=== PATIENT | female | born 1985 ===

== ENCOUNTER 2016-10-28 15:58 | Emergency (ER) | payer MEDICAID ==
[~2016-10-28] VITALS: Ht 162.6 cm; Wt 63.0 kg
[2016-10-28 17:14] LABS: CALCIUM 9.2 mg/dL (8.5-10.1); CHLORIDE SERUM 102 mmol/L (98-107); CREATININE SERUM 0.7 mg/dL (0.6-1.0); GFR1 > 60 mL/min; GLUCOSE SERUM 100 mg/dL (74-106); POTASSIUM SERUM 3.7 mmol/L (3.5-5.1); SODIUM SERUM 138 mmol/L (136-145)
[2016-10-28 17:18] LABS: BASOPHIL % 0.2 % (0-2); PLATELET COUNT 407 x10^3mcL (130-400); RED CELL DISTRIBUTION WIDTH 13.6 % (11.5-14.5)
[2016-10-28 19:10] VITALS: BP 137/71
== END 2016-10-28 18:35 | disposition home or self-care (01) ==
LOC: ED 15:58
PROVIDERS: Emergency Medicine
DX: O21.0 Mild hyperemesis gravidarum (principal); Z3A.10 10 weeks gestation of pregnancy
CPT/HCPCS: J2405; J7030

== ENCOUNTER 2016-10-29 20:55 | Inpatient (IN) | payer MEDICAID ==
[~2016-10-29] VITALS: Ht 162.6 cm; Wt 58.7 kg
--- NOTE | 2016-10-29 21:33 | NUR ---
MSE COMPLETED BY DR CARMEN
[2016-10-29 21:51] LABS: BASOPHIL % 0.4 % (0-2); RED CELL DISTRIBUTION WIDTH 13.9 % (11.5-14.5)
[2016-10-29 21:52] LABS: PLATELET COUNT 401 x10^3mcL (130-400)
--- NOTE | 2016-10-29 21:55 | NUR ---
PT MEDICATED PER MD ORDERS; PLEASE SEE EMAR. PT AWAKE AND ALERT, DENIED ANY ALLERGIES TO MEDICATIONS PRIOR TO ADMINSTRATION
[2016-10-29 22:06] LABS: CALCIUM 8.6 mg/dL (8.5-10.1); CARBON DIOXIDE 25.3 mmol/L (21-32); CHLORIDE SERUM 102 mmol/L (98-107); CREATININE SERUM 0.7 mg/dL (0.6-1.0); GFR1 > 60 mL/min; GLUCOSE SERUM 108 mg/dL (74-106); POTASSIUM SERUM 3.2 mmol/L (3.5-5.1); SODIUM SERUM 136 mmol/L (136-145)
[2016-10-29 22:10] LABS: ALBUMIN 3.6 g/dL (3.4-5.0); ALKALINE PHOSPHATASE 48 U/L (46-116); ALT/SGPT 25 U/L (14-59); AMYLASE 85 U/L (25-115); AST/SGOT 17 U/L (15-37); BILIRUBIN TOTAL 0.6 mg/dL (0.20-1.00); LIPASE 301 IU/L (73-393); TOTAL PROTEIN, SERUM 7.2 g/dL (6.4-8.2)
--- NOTE | 2016-10-29 23:37 | NUR ---
PT REQUESTING PAIN MEDICATION NOW. DR CARMEN MADE AWARE.
--- NOTE | 2016-10-29 23:38 | NUR ---
PT MEDICATED PER MD ORDERS. PT EDUCATED AND VERBALIZED UNDERSTANDING PRIOR TO ADMIN OF ALL MEDICATIONS,
--- NOTE | 2016-10-30 00:11 | NUR ---
REPORT CALLED TO [facility] TO ASSUME CARE OF PT
[2016-10-30 01:23] VITALS: BP 120/64
--- NOTE | 2016-10-30 01:34 | NUR ---
RECEIVED PATIENT FROM ED VIA GUERNEY, PATIENT IN NO ACUTE DISTRESS, NO C/O PAIN AT THIS TIME, ALERT AND ORIENTED PATIENT STATES SHE IS 10 WEEKS , NO N/V AT THIS TIME, ORIENTED PATIEN TO ROOM AND SURROUNDINGS, BED IN LOW POSITION, BED RAILS UP X 2, CALL LIGHT WITHIN REACH, WILL ENDORSE CARE TO [facility] CARRANZA
[2016-10-30 01:50] LABS: microscopic required? YES; urine erythrocyte NEGATIVE (NEGATIVE)
[2016-10-30 02:09] LABS: FREE T4 1.42 ng/dL (0.76-1.46)
[2016-10-30 02:15] LABS: AMPHETAMINE QUAL UR NONE DETECTED (NEG <=1000)
[2016-10-30 02:17] LABS: T3 TOTAL 1.51 ng/mL
--- NOTE | 2016-10-30 05:04 | NUR ---
PT VOMITED APPROX 75 CC. ZOFRAN 4 MG IV GIVEN.
--- NOTE | 2016-10-30 05:35 | NUR ---
PT STILL VOMITING AFTER ZOFRAN WAS GIVEN. PT REQUESTING FOR ANOTHER MED. FOR VOMITING. PT DECIDED TO WALK IN THE HALLWAY FOR THE MEANTIME . DR. NETTLES INFORMED THAT PT STILL CONTINUES TO VOMIT.
[2016-10-30 05:56] VITALS: BP 110/75
--- NOTE | 2016-10-30 06:08 | NUR ---
PT MEDICATED W/ PHENERGAN 12.5 MG IV ORDERED FOR VOMITING.
[2016-10-30 06:39] LABS: BASOPHIL % 0.3 % (0-2); PLATELET COUNT 379 x10^3mcL (130-400); RED CELL DISTRIBUTION WIDTH 13.8 % (11.5-14.5)
--- NOTE | 2016-10-30 06:40 | NUR ---
PT APPEARS TO BE SLEEPING COMFORTABLY AFTER PHENERGAN WAS GIVEN. NO FURTHER VOMITING AT THIS TIME.
[2016-10-30 06:46] LABS: CALCIUM 8.2 mg/dL (8.5-10.1); CARBON DIOXIDE 22.4 mmol/L (21-32); CHLORIDE SERUM 104 mmol/L (98-107); CREATININE SERUM 0.5 mg/dL (0.6-1.0); GFR1 > 60 mL/min; GLUCOSE SERUM 91 mg/dL (74-106); MAGNESIUM 1.9 mg/dL (1.8-2.4); PHOSPHOROUS 2.6 mg/dL (2.5-4.9); POTASSIUM SERUM 3.7 mmol/L (3.5-5.1); SODIUM SERUM 135 mmol/L (136-145)
[2016-10-30 06:50] LABS: CHOLESTEROL/HDL RATIO 2.8
--- NOTE | 2016-10-30 08:00 | NUR ---
DROWSY FROM PHENERGAN THIS AM DURING NOC SHIFT. ORIENTED. FOLLOWS COMANDS. FULL LIQUID DIET AT BEDSIDE. INTERMITTENT NAUSEA. NS INFUSING 50 CC HOUR. TELE # 29 NSR. NO PAIN AT THIS TIME. BREATHING FREELY ON RA. INDEPENDENT W ADL'S. CALL LIGHT WITHIN REACH.
[2016-10-30 09:20] VITALS: BP 92/52
[2016-10-30 13:55] VITALS: BP 136/75
[2016-10-30 17:08] VITALS: BP 114/54
--- NOTE | 2016-10-30 18:12 | NUR ---
SLEEPING. CONTINUES TO HAVE NAUSEA WHEN PHENERGAN WEARS OFF. GOES TO SLEEP AFTER PHENERGAN ADMIN. ON FULL LIQUID DIET. POOR APPETITE THIS SHIFT. BRP. NS INFUSING 50 CC HOUR. CLEOCIN IV ABX. BREATHING FREELY ON RA. WAITING FOR DR. Tegan SALMERON OB CONSULT. INDEPENDENT WITH ADL'S. BRP. CALL LIGHT WITHIN REACH.
[2016-10-30 19:40] VITALS: BP 118/69
--- NOTE | 2016-10-30 19:40 | NUR ---
PT RESTING IN BED WITH EYES CLOSED. EASILY AROUSED WHEN NAME CALLED. AOX4. VERBAL WITH CLEAR SPEECH. PT STATES FEELING BETTER AFTER LAST PHENERGAN THAT WAS GIVEN. DENIES ANY NAUSEA AT THIS TIME. DENIES ANY SOB. LUNGS CLEAR BILATERALLY. DENIES ANY CHEST PAIN. ON TELE 29, SB. ABDOMEN SOFT AND FLAT. BOWEL SOUNDS HYPOACTIVE. PT C/O SLIGHT ABDOMINAL PAIN, BUT REFUSES ANY PAIN MEDICATION AT THIS TIME. SKIN WARM AND DRY. IV TO RIGHT AC PATENT AND INTACT. NO S/S OF INFECTION NOTED. NO EDEMA NOTED. PULSES PALPABLE. CALL LIGHT WITHIN REACH. WILL CONTINUE TO MONITOR.
--- NOTE | 2016-10-30 23:40 | NUR ---
PT AWAKE AND C/O FEELING NAUSEOUS. PT HAD MODERATE AMOUNT EMESIS. PRN PHENERGAN 12.5 MG IVP GIVEN. ALSO, GIVEN ICE CHIPS. PT C/O ABDOMINAL PAIN, BUT REFUSED PAIN MEDICATION. CALL LIGHT WITHIN REACH. WILL CONTINUE TO MONITOR.
--- NOTE | 2016-10-31 00:30 | NUR ---
PT RESTING IN BED WITH EYES CLOSED. BREATHING EQUAL AND UNLABORED. NO S/S OF DISTRESS OR DISCOMFORT NOTED. IV PATENT AND INFUSING WELL. RESTING COMFORTABLY WITH RELAXED FACIAL FEATURES. CALL LIGHT WITHIN REACH. WILL CONTINUE TO MONITOR.
--- NOTE | 2016-10-31 06:00 | NUR ---
PT RESTING IN BED WITH EYES CLOSED. IV PATENT AND INTACT. IV INFUSING WELL TO RIGHT AC. RESTING COMFORTABLY WITH RELAXED FACIAL FEATURES. CALL LIGHT WITHIN REACH. WILL CONTINUE TO MONITOR.
[2016-10-31 06:03] LABS: BASOPHIL % 0.3 % (0-2); PLATELET COUNT 360 x10^3mcL (130-400); RED CELL DISTRIBUTION WIDTH 13.8 % (11.5-14.5)
[2016-10-31 06:24] LABS: CARBON DIOXIDE 22.2 mmol/L (21-32); CHLORIDE SERUM 104 mmol/L (98-107); CREATININE SERUM 0.5 mg/dL (0.6-1.0); GFR1 > 60 mL/min; GLUCOSE SERUM 83 mg/dL (74-106); MAGNESIUM 1.9 mg/dL (1.8-2.4); PHOSPHOROUS 2.6 mg/dL (2.5-4.9); POTASSIUM SERUM 3.4 mmol/L (3.5-5.1); SODIUM SERUM 137 mmol/L (136-145)
[2016-10-31 06:26] VITALS: BP 124/66
--- NOTE | 2016-10-31 08:00 | NUR ---
ALERT AND ORIENTED. BREATHIHG FREELY ON RA. INDEPENDENT W ADL'S. TELE # 29 SR HR 63. NS INFUSING 50 CC HOUR TO RT AC. CONTINUES TO HAVE INTERMITTENT NAUSEA. PHENERGAN HELPFUL WITH NAUSEA. UNABLE TO CONSUME FULL LIQUID DIET. VSS. CALL LIGHT WITHIN REACH.
[2016-10-31 09:29] VITALS: BP 92/38
[2016-10-31 10:58] VITALS: BP 92/38
[2016-10-31 13:20] VITALS: BP 128/62
--- NOTE | 2016-10-31 19:05 | NUR ---
PT WAS ABLE TO CONSUME MORE OF HER FULL LIQUID DIET THIS AFTERNOON. DID NOT CARE FOR CREAM OF MUSHROOM SOUP. AMBULATED IN HALLWAY. SITTING UP IN BED WITH HER SIGNIFICANT OTHER IN ROOM. NS INFUSING 90 CC HOUR. VSS. RECEIVED PO K+
[2016-10-31 19:30] VITALS: BP 92/56
--- NOTE | 2016-10-31 19:30 | NUR ---
PT RESTING IN BED. AOX4. VERBAL WITH CLEAR SPEECH. DENIES ANY SOB. LUNGS CLEAR BILATERALLY. DENIES ANY NAUSEA AT THIS TIME. DENIES ANY CHEST PAIN. ON TELE 29, NSR. ABD SOFT AND FLAT. BOWEL SOUNDS HYPOACTIVE. IV TO RIGHT FA PATENT AND INTACT. NO S/S OF INFECTION NOTED. SKIN WARM AND DRY. NO EDEMA NOTED. PULSES PALPABLE. DENIES ANY PAIN AT THIS TIME. NO S/S OF DISTRESS OR DISCOMFORT NOTED. RESTING WITH RELAXED FACIAL FEATURES. CALL LIGHT WITHIN REACH. WILL CONTINUE TO MONITOR.
--- NOTE | 2016-10-31 19:49 | NUR ---
DR. ARREGUIN UPDATED PT REQUESTING TO ADVANCE DIET. TOLERATING FULL LIQUID DIET WELL. AWAITING NEW ORDERS.
--- NOTE | 2016-10-31 21:55 | NUR ---
PT C/O YELLING AND C/O 04/01 PAIN TO LOWER ABDOMEN. DENIES ANY NAUSEA AT THIS TIME. OFFERED TYLENOL 650 MG PO, BUT PT REFUSED AND STATED, "I CAN'T TAKE ANYTHING RIGHT NOW. I DON'T THINK I CAN KEEP IT DOWN." DR. ARREGUIN UPDATED OF PT YELLING IN PAIN AND REQUESTING TO SEE DR. DR. ARREGUIN IN TO SEE PT.
--- NOTE | 2016-10-31 23:30 | NUR ---
PT STATES FEELING MUCH BETTER, BUT STILL FEELS PRESSURE IN ABDOMEN. BREATHING EQUAL AND UNLABORED. NO S/S OF DISTRESS NOTED AT THIS TIME. IV PATENT AND INFUSING WELL. NO S/S OF INFECTION NOTED. CALL LIGHT WITHIN REACH. WILL CONTINUE TO MONITOR.
--- NOTE | 2016-11-01 00:15 | NUR ---
PT RESTING IN BED WITH EYES CLOSED. NO S/S OF DISTRESS OR DISCOMFORT NOTED. IV PATENT AND INFUSING WELL TO RIGHT FA. CALL LIGHT WITHIN REACH. WILL CONTINUE TO MONITOR.
--- NOTE | 2016-11-01 00:48 | NUR ---
DR. ARREGUIN UPDATED AND AWARE OF RESULTS FROM US OB ENDOVAGINAL: SMALL SUBCHORIONIC HEMORRHAGE.
--- NOTE | 2016-11-01 02:43 | NUR ---
PT C/O NAUSEA. PRN ZOFRAN 4 MG IVP AND ICE CHIPS GIVEN. DENIES ANY PAIN AT THIS TIME. BREATHING EQUAL AND UNLABORED. IV PATENT AND INFUSING WELL. CALL LIGHT WITHIN REACH. WILL CONTINUE TO MONITOR.
[2016-11-01 06:07] VITALS: BP 101/61
[2016-11-01 07:36] VITALS: Ht 162.6 cm; Wt 58.7 kg
--- NOTE | 2016-11-01 08:00 | NUR ---
A/A/OX4; AMBULATED IN HALLWAY WITH STEADY GAIT. TELE#29 = SR; HR =70. BREATHING SOUND CLEAR MINDI. NO RESP DISTRESS ON RA. ABD FLAT/SOFT. DENIED ABD PAIN. BOWEL SOUND ACTIVE. TOLERATED FULL LIQUID DIET. NO N/V NOW. STATED HAD BM THIS AM. NO VAGINAL BLEEDING. IVF OF NS 90CC/HR INFUSING WELL. IV SITE TO RFA CLEAN. CALL LIGHT IN REACH.
[2016-11-01 08:28] LABS: BASOPHIL % 0.4 % (0-2); PLATELET COUNT 362 x10^3mcL (130-400); RED CELL DISTRIBUTION WIDTH 14.1 % (11.5-14.5)
--- NOTE | 2016-11-01 08:40 | NUR ---
DR. BLOUNT AND MEDICAL TEAM MADE MORNING ROUND. PLAN OF CARE DISCUSSED WITH PATIENT, INCLUDED WITH POSSIBLE D/C TO HOME TODAY IF TOLERATED DIET. PATIENT AGREED WITH PLAN OF CARE.
[2016-11-01 09:04] LABS: CARBON DIOXIDE 26.9 mmol/L (21-32); CHLORIDE SERUM 103 mmol/L (98-107); POTASSIUM SERUM 4.3 mmol/L (3.5-5.1); SODIUM SERUM 136 mmol/L (136-145)
[2016-11-01 09:05] LABS: CALCIUM 8.4 mg/dL (8.5-10.1); CREATININE SERUM 0.6 mg/dL (0.6-1.0); GFR1 > 60 mL/min; GLUCOSE SERUM 107 mg/dL (74-106)
[2016-11-01 09:32] VITALS: BP 112/60
--- NOTE | 2016-11-01 10:48 | NUR ---
C/O N/V X1; ZOFRAN 4MG IVP GIVEN.
[2016-11-01 13:31] VITALS: BP 112/68
--- NOTE | 2016-11-01 13:48 | NUR ---
TOLERATED REGULAR DIET LUNCH. AMBULATED IN HALLWAY.
[2016-11-01] MEDS ORDERED: ZOF4 PO (14:15)
[2016-11-01] MEDS ORDERED: DICLEGIS1 TCP PO (14:22)
[2016-11-01 15:31] VITALS: BP 112/68
--- NOTE | 2016-11-01 17:36 | NUR ---
CONDITION STABLE. NO N/V AFTER LUNCH. D/C TO HOME PER ORDER. INSTRUCTION GIVEN. IV D/C'D. OVER NEEDLE CATH INTACT.
== END 2016-11-01 16:45 | disposition home or self-care (01) | DRG 566 ==
LOC: ED 20:55 → DU 23:56
PROVIDERS: Emergency Medicine; ADMIT Family Medicine
DX: O21.1 Hyperemesis gravidarum with metabolic disturbance (principal); N17.0 Acute kidney failure with tubular necrosis; Z3A.10 10 weeks gestation of pregnancy; O26.831 Pregnancy related renal disease, first trimester; O46.8X1 Other antepartum hemorrhage, first trimester; F12.10 Cannabis abuse, uncomplicated; Z87.891 Personal history of nicotine dependence; Z68.22 Body mass index [BMI] 22.0-22.9, adult
CPT/HCPCS: 80307; 83880; 84439; G0480; J1200; J2175; J2405; J2550; J2765; J7030; Q0092

== ENCOUNTER 2016-11-10 13:47 | Emergency (ER) | payer MEDICAID ==
[~2016-11-10] VITALS: Ht 162.6 cm; Wt 68.1 kg
[~2016-11-10 13:47] MED LIST: DICLEGIS1 TCP PO; ZOF4 PO
[2016-11-10 17:11] LABS: BASOPHIL % 0.6 % (0-2); PLATELET COUNT 380 x10^3mcL (130-400)
[2016-11-10 17:12] LABS: RED CELL DISTRIBUTION WIDTH 14.9 % (11.5-14.5)
[2016-11-10 17:38] VITALS: BP 126/73
[2016-11-10 17:49] LABS: UA SPECIFIC GRAVITY 1.025 (1.005-1.035); microscopic required? YES; urine erythrocyte 2+ (NEGATIVE)
== END 2016-11-10 18:25 | disposition home or self-care (01) ==
LOC: ED 13:47
PROVIDERS: Emergency Medicine
DX: O20.0 Threatened abortion (principal); Z3A.10 10 weeks gestation of pregnancy
CPT/HCPCS: Q0092